=== PATIENT | female | born 1930 | race Hispanic/Latino ===

== ENCOUNTER → 2018-10-26 | Outpatient (CLI) | payer MEDICARE ==
[~2018-10-26] MED LIST: IOPAMIDOL 370 MG/ML 200 ML INFUS..BTL INJ ONE; SODIUM CHLORIDE 0.9% 500ML 500 ML ONE; SODIUM CHLORIDE 0.9% 50ML 50 ML ONE
[2018-10-26 15:18] LABS: CREATININE, SERUM 1.19 mg/dL (0.57-1.11)
--- NOTE | 2018-10-26 16:34 | Diagnostic Imaging Report ---
EXAMINATION: Head CT with contrast HISTORY: Syncope, headaches, dizziness, diabetes COMPARISON: None. TECHNIQUE: Multidetector axial images were obtained with contrast from the foramen magnum to the vertex . The images were reconstructed using brain and bone algorithms. Thin section brain images were reformatted into coronal and sagittal planes. Image quality: Motion/streaking artifact limits the evaluation of the skull base and posterior cranial fossa. Dose modulation, iterative reconstruction, and/or weight based adjustment of the mA/kV was utilized to reduce the radiation dose to as low as reasonably achievable. Intravenous contrast: 100 mL of Isovue-370. FINDINGS: Parenchyma: 1. Few scatter and periventricular white matter hypodensities, most likely nonspecific chronic microvascular ischemic changes, within normal limits for age. Otherwise no abnormal densities in the brain parenchyma. 2. No mass or hemorrhage. No CT evidence of acute territorial vascular insult. No abnormal enhancement. Extra-axial spaces:No abnormal density. No extra-axial fluid collections Brain volume: Normal for age. Ventricles: No hydrocephalus or displacement. Arteries: No density suggestive of thrombus. Dural sinuses: No abnormal density. Extra-axial spaces: No abnormal density. Foramen magnum: No mass, Chiari malformation, or basilar invagination. Sella: No obvious mass. Paranasal/mastoid sinuses: Imaged portions unremarkable. Skull/Scalp: No lytic or blastic lesions. No fractures. IMPRESSION: Mild age-related chronic microvascular ischemic changes, otherwise no intracranial abnormalities. Signed by: Dr. Elise Carrillo M.D. on 10/26/2018 4:31 PM
== END ==
LOC: CT 14:17
PROVIDERS: ATTEND Internal Medicine
DX: E11.51 Type 2 diabetes mellitus with diabetic peripheral angiopathy without gangrene (principal); R42 Dizziness and giddiness; R55 Syncope and collapse; Z86.73 Personal history of transient ischemic attack (TIA), and cerebral infarction without residual deficits
CPT/HCPCS: 36415; 70460; 82565; 84520; J7040; Q9967